=== PATIENT | female | born 1950 | race Caucasian/White ===

== ENCOUNTER 2017-06-17 12:30 | Inpatient (IN) | payer MEDICARE ==
[2017-06-17] MEDS ORDERED: Dexamethasone 10 MG/ML VIAL ONE (12:57)
[2017-06-17 13:05] LABS: Bilirubin Negative (Negative); Blood, Urine Negative (Negative); Clarity CLEAR (Clear); Glucose, Urine (Dipstick) Negative (Negative); Leukocyte Small (Negative); Nitrite Negative (Negative); Protein, Urine (Dipstick) Negative (Neg-Trace); Specific Gravity, Urine 1.019 (1.002-1.036); Urobilinogen 0.2 mg/dL (0.2-1.0)
[2017-06-17 13:07] LABS: Bacteria/HPF None Seen HPF (None Seen); Hyaline Casts/LPF 0-3 HYALINE CAST LPF (0-3 Hyaline); Pathc Cast-AUWi Flag 0.27 (0-2.49); RBC/HPF 0-3 HPF (0-3); Squamous Epithelial 0-3 HPF (0-3); WBC/HPF 0-3 HPF (0-3)
--- NOTE | 2017-06-17 13:12 | RAD ---
PORTABLE CHEST 1 VIEW: Date: 06/17/17 Time: 1257 hours HISTORY: Altered mental status. FINDINGS: The heart size is normal. The aorta is tortuous. The lungs are expanded without focal areas of consol idation, pneumothorax, or pleural effusions. IMPRESSION: No radiographic evidence of acute cardiopulmonary process. POS: H
[2017-06-17 13:19] LABS: #Eosinphils 0.2 thou/uL (0.0-0.7); #Lymphocytes 1.7 thou/uL (1.20-3.40); #Monocytes 0.4 thou/uL (0.11-0.59); #Neutrophils 3.7 thou/uL (1.40-6.50); %Basophils 0.7 % (0.0-1.0); %Eosinophils 3.9 % (0.0-10.0); %Lymphocytes 28.2 % (21.0-51.0); %Monocytes 6.9 % (0.0-10.0); %Neutrophils 60.3 % (42.0-75.0); Mean Corpuscular Hemoglobin 30.8 pg (27.0-31.0); Mean Corpuscular Volume 93.4 fl (81.0-99.0); Mean Platelet Volume 7.3 fL (7.4-10.4); Platelet Count 279 thou/uL (130-400); RBC Distribution Width 11.9 % (11.5-14.5); Red Blood Cell (RBC) Count 4.55 mill/uL (4.20-5.40); White Blood Cell (WBC) Count 6.1 thou/uL (4.8-10.8)
[2017-06-17 13:47] LABS: ALT (SGPT) 12 U/L (8-55); AST (SGOT) 16 U/L (5-34); Albumin 4.3 g/dL (3.4-4.8); Alkaline Phosphatase 104 U/L (40-150); Anion Gap 12 mmol/L (10-20); BUN (Urea Nitrogen) 16 mg/dL (9.8-20.1); Bilirubin, Total 0.6 mg/dL (0.2-1.2); CK (CPK) 56 U/L (29-168); Calc. Creatinine Clearance 0 mL/min (70-130); Calcium 9.6 mg/dL (7.8-10.44); Carbon Dioxide 28 mmol/L (23-31); Chloride 101 mmol/L (98-107); Estimated GFR-MDRD 73; Globulin 2.9 g/dL (2.4-3.5); Glucose 115 mg/dL (80-115); Potassium 3.7 mmol/L (3.5-5.1); Protein, Total 7.2 g/dL (6.0-8.3); Sodium 137 mmol/L (136-145)
[2017-06-17 13:50] LABS: CKMB 1.4 ng/mL (0-6.6); Troponin I Less than 0.010 ng/mL (< 0.028)
[2017-06-17 15:45] LABS: PTT 36.1 SEC (22.9-36.1); Prothrombin Time 12.9 SEC (12.0-14.7)
[2017-06-17 16:41] VITALS: BMI 27.6
--- NOTE | 2017-06-17 17:02 | HP ---
CHIEF COMPLAINT: Abnormal CAT scan finding. HISTORY OF PRESENT ILLNESS: The patient is a very pleasant 67-year-old female with past medical hist ory of breast cancer, status post lumpectomy and radiation, history of hypothyroidism, history of ref lux who presented to the hospital for abnormal CAT scan. The patient states that for about a couple of weeks, she has been having a headache around the occipital area, which has increased in intensity. Her also stated that her headache has been going on for about a month now. The patient als o stated that she has been having for the past couple of weeks some dizziness and also some ringing i n the ears with increasing and decreasing frequency, which lasts for about few minutes and resolves. Last Wednesday, patient actually was at the bank and got very confused, could not find her office nor h tessie lopes's office. At that time, she was taken over to an urgent care clinic where a CAT scan was ord ered for this patient. The patient denies currently any nausea, vomiting, any blurry vision or any h eadaches. The patient had the CAT scan done today at 11:00 a.m. Based on the CAT scan finding, she was asked to come into the ER for further evaluation. PAST MEDICAL HISTORY: Reflux, hypothyroidism and breast cancer with status post lumpectomy. PAST SURGICAL HISTORY: Cholecystectomy, right breast lumpectomy. She had 5 nodes that were negative and initially she did have positive margins; however, she went back and those margins were removed a nd her repeat margins were negative. She is a T1N0M0. MEDICATIONS: The patient says that she takes omeprazole, anastrozole and Synthroid. ALLERGIES: The patient denies any drug allergies. SOCIAL HISTORY: The patient lives with her spouse. Never smoked. The patient is a social drinker. No illicit drug use. REVIEW OF SYSTEMS: The patient has been complaining of headache, dizziness, ringing in the ears, angie e bouts of confusion. Otherwise, the rest of the review of system that was done was negative. The p atient denies any night sweats, fevers or chills, any weight loss, any chest pain, shortness of breat h, any joint pain or back pain, any rashes, any bruising, any chest pain or palpitation. PHYSICAL EXAMINATION: GENERAL: The patient is awake, alert and oriented x3. CARDIOVASCULAR: S1 and S2 present. No murmurs, rubs or gallops. LUNGS: Clear to auscultation. No rhonchi or wheezing noted. ABDOMEN: Soft, bowel sounds are present x2 and nontender. NEUROLOGIC: The patient has 5/5 upper extremity strength and lower extremity strength. Sensation is intact in upper and lower extremities. Cranial nerves II-XI are intact. Cerebellum exam finger to toe is intact. Iinb-bj-ayie is intact. LABORATORY AND IMAGING DATA: As the following; sodium of 137, potassium of 3.7, chloride of 101, car bon dioxide of 28 and creatinine 0.79. LFTs were normal. Alkaline phosphatase 104. Lactic dehydrog enase was 226. White blood count was 6.1, hemoglobin was 14.0, hematocrit was 42.5 and platelets wer e 279. INR was 1. Initial CT scan that was done indicated multiple intracranial masses. ASSESSMENT AND PLAN: The patient is a very pleasant 67-year-old female status post radiation for emilee ast cancer on anastrozole adjuvant therapy, who initially had a CAT scan as an outpatient done given her symptoms of headache, dizziness, and bouts of confusion who presents today with abnormal CAT scan finding. 1. Headaches, dizziness and bouts of confusion could be secondary to possible metastatic breast canc er versus new mass. Initial CT scan did indicate intracranial mass. We will check an MRI with and w ithout contrast. For better evaluation, we will start the patient on some Decadron. We will also ge t Neurosurgery consult. We will also get Oncology consult. 2. Hypothyroidism. We will continue her home medication. 3. Deep venous thrombosis prophylaxis. We will put patient on sequential compression devices. 4. Reflux. We will continue the patient's Prevacid.
[2017-06-17] MEDS ORDERED: ISOVUE-370 76%-LOCM 1 ML ONE (17:11)
[2017-06-17] MEDS: Dexamethasone 4 MG in Sodium Chloride 0.9% 50 ML IVPB SCH (18:44)
--- NOTE | 2017-06-17 20:48 | CON ---
DATE OF CONSULTATION: 06/17/2017 HISTORY OF PRESENT ILLNESS: Ms. Alfaro is a 67-year-old female had a past medical history of breast cancer, status post lumpectomy and radiation history with Dr. Lopez and Dr. Bills. History of hypothyroidism, history of reflux. The patient presented to the hospital after having several weeks of dizziness, headache, and loss of short term memory, and change in mental status. This was especially apparent the last Wednesday, 06/11 witnessed by coworkers at her work. She has had some tinnitus bilaterally with increasing frequency. These episodes last a few minutes and then resolved. 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 She presented to urgent care clinic, where a CAT scan was ordered of the brain. A CAT scan showed multiple metastatic lesions. Patient in 03/2016, has a breast biopsy surgical specimen that was estrogen receptor positive, progesterone receptor positive. Diagnosis was invasive lobular carcinoma. After presenting to the emergency room this evening with her family, the patient received a bolus of Decadron, which resolved her headache and some of her dizzy symptoms. Neurosurgery was consulted on the lesions found on the CT scan and to evaluate the MRI brain lab protocol. PAST MEDICAL HISTORY: Reflux, hypothyroidism, breast cancer status post lumpectomy. PAST SURGICAL HISTORY: Cholecystectomy, right breast lumpectomy, resection of 5 nodes that were negative with partially positive margins. The margins were removed and repeat margins were negative. She is T1N0M0. MEDICATIONS: The patient is taking omeprazole, anastrozole, and Synthroid. ALLERGIES: Patient denies any drug allergies. SOCIAL HISTORY: She lives at her house with her spouse. She denies any smoking history. She is a social drinker and denies any drug allergies. REVIEW OF SYSTEMS: Ten-point review of systems completed. The patient has a positive review of symptoms of dizziness. She has mild weakness in bilateral upper extremities that has been worsening over time. She has no focal, motor, or sensory deficits in the upper or lower extremities bilaterally. She complains of headache, dizziness, tinnitus bilaterally, and recent bouts of confusion. She denies any night sweats, fever, chills, weight loss, chest pain , or shortness of breath. All other review of systems negative, unless stated in the above HPI. PHYSICAL EXAMINATION: VITAL SIGNS: Have been reviewed. Temperature is 98.6, pulse 76, respirations 18, O2 sat 95% on room air, blood pressure is 109/62. GENERAL: The patient is alert and oriented x3. She is GCS of 15. She is accompanied by her son, hiiofsev-bb-ooy, and . CARDIOVASCULAR: Regular rate and rhythm. Normal S1, S2. Heart sounds are present. LUNGS: The patient has bilateral symmetric chest rise. Appears to have no shortness of breath, no wheezing noted. ABDOMEN: Patient has bowel sounds that are present and nontender. EXTREMITIES: Upper and lower extremities: No focal, motor, or sensory deficits bilaterally. Pulses +2, equal and symmetric in the upper and lower extremities bilaterally. NEUROLOGIC: Patient's cranial nerves II through XII are grossly intact. Speech is fluent. She answers my questions appropriately. There are intermittent questions that she refers to her to answer. Her heel to lloyd exam is intact. She has got no lateralizing deficits on exam. Cerebellar exam is normal with rhythmic finger to thumb touches. I did not assess gait as patient is explained to be off balance. ASSESSMENT: Ms. Alfaro is a 67-year-old female, who presents with multiple metastatic lesions to the brain, the largest of which is in the left frontal lobe, is likely causing most of her symptoms of confusion, dizziness, and changes in mental status. She is a breast cancer positive been on anastrozole adjuvant therapy. PLAN: Dr. Lopez has been the treating radiation oncologist for Ms. Alfaro. She will likely see Mrs. alfaro by morning to decide if they need some tissue for diagnosis before radiation. If they do, we will possibly plan on doing a frontal craniotomy tomorrow. Starting at midnight night, we will keep her n.p.o. We will start her on Decadron and add Protonix for GI prophylaxis. We will use sequential compression devices for prevention of DVTs. After there has been discussion tomorrow between Dr. Lopez and the Neurosurgery group, we will make a plan with the patient going forward. We will refer to the medicine team for medical management of the patient for the time being. If there are any further questions, please feel free to contact Neurosurgery. KOBI
--- NOTE | 2017-06-17 23:02 | CT ---
CT CHEST WITH IV CONTRAST CT ABDOMEN AND PELVIS WITH IV CONTRAST 06/17/17 HISTORY: Metastatic brain disease. COMPARISON: None available. CT THORAX: The heart is enlarged. Thoracic aorta is normal in caliber. There is no evidence of lymphadenopathy. No pulmonary nodule or mass is seen in the lungs bilaterally and there is no pleural effusion. The viral ngs are clear. No lytic or sclerotic osseous lesions are seen. Degenerative changes are seen in the thoracic spine. CT ABDOMEN AND PELVIS: There are two hypodense lesions seen in the lateral segment of the left hepatic lobe, largest measure s 2.9 cm which does demonstrate fluid attenuation. Smaller subcentimeter hypodense lesion is also see n in the lateral segment left hepatic lobe and even smaller subcentimeter hypodense lesion seen in th e lateral aspect dome of the liver. No additional hepatic lesions are appreciated. The findings are p robably related to small hepatic cysts although cystic metastatic lesions could not be entirely exclu ded although this is thought less likely. The spleen, pancreas, bilateral adrenal glands, kidneys, urinary bladder, uterus and adnexal regions, and opacified bowel demonstrate a normal CT appearance. Vascular calcifications are seen in the thor acic aorta. A few colonic diverticula are seen without CT evidence of diverticulitis. There is no evidence of lymphadenopathy. No mass or intraperitoneal free fluid is seen in the abdomen or pelvis. Small hiatal hernia is identified. Osseous structures are demonstrate no lytic or sclerotic lesions and there are degenerative changes i n the spine. IMPRESSION: 1. No definite CT findings to suggest metastatic disease. 2. Hypodense cystic lesions within the liver, which are thought to most likely be related to hep atic cysts, although given history of metastatic disease and multiplicity of these lesions, metastati c disease cannot be entirely excluded but is thought less likely. 3. Small hiatal hernia. 4. Colonic diverticulosis. 5. Cholecystectomy changes. 6. Lungs are clear without evidence of a pulmonary nodule or mass. POS: ERIC
[2017-06-17] MEDS ORDERED: Pantoprazole 40 MG VIAL IVP SCH (23:45)
[2017-06-18] MEDS: Dexamethasone 4 MG in Sodium Chloride 0.9% 50 ML IVPB SCH ×2 (00:16→05:42)
[2017-06-18] MEDS: Pantoprazole 40 MG VIAL IVP SCH ×3 (03:37→20:43)
--- NOTE | 2017-06-18 07:16 | PRG ---
DATE OF SERVICE: 06/18/2017 I talked to Ms. Alfaro in her room this morning about communicating with Dr. Lopez to see what h er plan is going forward. Ms. Alfaro is status post lumpectomy for ductal carcinoma. She also allison s a newly found multiple metastatic lesions in the brain. On exam this morning, her headache is dull and she has no new neurologic deficits. The Decadron is likely helping with the edema around the ri ght frontal tumor. Her vital signs have been stable. Overnight, the patient reports not sleeping we ll. She has been n.p.o. since midnight and we will continue that until we have final plans in commun ication with the radiation oncologist. If there are any further questions, please feel free to contact Neurosurgery.
--- NOTE | 2017-06-18 07:24 | PRG ---
DATE OF SERVICE: 06/18/2017 I personally interviewed and examined the patient and agree with documentation of Eddie Gillespie PA-C, dated 06/17/2017. Briefly, Yuni Alfaro is a very pleasant 67-year-old woman who underwent diagnosis and treatment of a breast cancer just last year. Breast cancer was felt to be genetically and histologically at low risk with a 95% cure rate. She returned to our hospital yesterday with new onset of mental status changes. Imaging of the brain reveals multiple lesions with surrounding vasogenic edema. Neurosurgery was consulted. Since admission, she has been on Decadron to help with her edema. She is feeling a bit better. This morning I am speaking with Ms. Alfaro, her and son. Overnight symptoms have improved. Cranial nerves look intact to me, there may be some amount of neglect of her left visual field versus a field cut, but the remainder of the cranial nerves are working. There is no lateralizing motor or sensory deficits. I reviewed imaging of the brain. There are 3 large contrast enhancing lesions that are visible on the scans. Two smaller enhancing lesions are seen as well. Of the larger three, the first is a lesion abutting the dura over the right frontal lobe and touching the interhemispheric falx. There is surrounding vasogenic edema in the right frontal lobe. There is another lesion in the right half of the posterior aspect of the corpus callosum. This was the right half of the splenium and there is occipital lobe edema behind it. A third lesion is in the left hemisphere abutting the ependymal surface of the atrium of the lateral ventricle on the left. There is some occipital lobe edema around that lesion. These lesion seems to be causing more edema than mass effect. The lesion of splenium of corpus callosum also abuts the interhemispheric falx. I discussed the case with Dr. Giselle Lopez and with both Dr. Lopez and Dr. Bills of Oncology and Radiation Oncology respectively. They recommended and ordered a CT of the chest, abdomen, and pelvis and other than some hypodensities in the liver, there is nothing else to give us an idea of a primary tumor. After CT imaging of the chest, abdomen and pelvis this most likely to represent a metastatic process from her original breast cancer, but almost it is likely it could be an unknown primary. Dr. Bills is willing to treat with whole-brain radiation therapy, then we can proceed with that. If, however, tissue is requested, then the right frontal lobe lesion is accessible surgically. The 5% less risk of permanent neurological deficit from that operation, but is not without risk. The patient understands this and is waiting to hear from her Oncology team about their recommendations. If a decision is made in the next hour the surgery could be added to our schedule today and if not, then Wednesday. MTDD
[2017-06-18] MEDS ORDERED: Sodium Chloride 0.9% 20 ML ONE (09:06)
[2017-06-18] MEDS ORDERED: Bupivacaine 0.5% 10 ML VIAL ONE (09:06)
[2017-06-18] MEDS ORDERED: Bacitracin Zinc Ointment 30 gm TUBE ONE (09:07)
[2017-06-18] MEDS ORDERED: Thrombin 5000 UNITS/5 ML VIAL ONE (09:07)
[2017-06-18] MEDS ORDERED: Midazolam HCl 2 mg/2 ml Vial ONE (09:39)
--- NOTE | 2017-06-18 09:47 | PRG ---
DATE OF SERVICE: 06/18/[address] Bills spoke with the patient, the family decided to proceed with a craniotomy for tissue t o make her diagnosis, treat the mass effect around one of the lesions and plan treatment of the other lesions. INFORMED CONSENT: I discussed indications, risks, benefits, and alternatives to BrainLAB stereotacti c assisted craniotomy for tumor resection. The risks we discussed included, but were not limited to bleeding, infection, brain damage, seizures, stroke, paralysis, dependence for care, cardiopulmonary complications of anesthesia and . She understands the risks and wants to proceed. I will take Mrs. Alfaro to the operating room to remove the right frontal lesion via craniotomy.
[2017-06-18] MEDS ORDERED: Lidocaine 0.5%/Epinephrine 1:200,000 50 ml Vial ONE (09:49)
[2017-06-18] MEDS ORDERED: Fentanyl 100 MCG/2 ML VIAL ONE ×2 (09:51→13:19)
[2017-06-18] MEDS ORDERED: CEFAZOLIN/Water 2 GM/20 ML SYRINGE ONE (09:56)
--- NOTE | 2017-06-18 10:41 | CON ---
DATE OF CONSULTATION: 06/18/2017 HISTORY OF PRESENT ILLNESS: Ms. Alfaro is a 67-year-old female who was admitted to the hospital f or an MRI suggestive of brain metastasis. I am seeing her today to discuss her treatment options. HISTORY OF PRESENT ILLNESS: Ms. Alfaro is well known to me. She was diagnosed with an early stag e, pathological stage IA, [id number] invasive lobular carcinoma of the right breast about a little more than a year ago. The tumor was estrogen and progesterone receptor positive and HER2 receptor negativ e. The tumor measured 5 mm in size. She was treated with breast conservation therapy including radi ation, which was completed around July 2016. She has been on Arimidex under the direction of Dr. Parker gregory because she was low risk on the Oncotype DX test. She was last seen by me in follow up about 3 months ago at which time she was doing well. About 2 weeks ago, she began having headaches. She in itially attributed this to stress. Last Wednesday, she had some disorientation and was seen by a clinic in [place] and was given some medication. On Wednesday, she returned to work but was having difficu lty with functioning at work. She was also unstable on her feet besides the disorientation. She und erwent a CT scan of the head yesterday at the [facility] which had findings suggestive of mult iple intracranial masses. Therefore, it was recommended that she come to the emergency room for eval uation. She was subsequently admitted to the hospital and underwent an MRI of the brain. This showe d at least 3 contrast enhancing lesions concerning for brain metastasis versus lymphoma. The largest measured 3.3 cm and was involving the right splenium of the corpus callosum. She had a second large lesion in the right frontal lobe measuring 2.2 cm. A third lesion was also identified in the left t emporal occipital area. There was also a fourth area of tiny enhancement seen along the left medial posterior parietal region. There was surrounding vasogenic edema with some midline shift. Concern w as for metastatic disease versus a COOKIE BREAKER lymphoma. She was seen by medical oncology and Dr. Kaur. A CT of the chest, abdomen, and pelvis were performed which showed no evidence of additional metast atic disease. She had 2 hypodensities in the liver consistent with cyst. I am seeing her today to d iscuss her options. She has been placed on Decadron and her symptoms are much better. Her thinking is much more clear and her balance is better. She denies any headaches at this time. She has no foc al weakness or numbness. She has no other areas of pain or shortness of breath. She voices no other complaints. PAST MEDICAL HISTORY: 1. Stage I invasive lobular carcinoma of the breast as mentioned above. The tumor was estrogen and progesterone receptor positive and HER2 receptor negative. 2. GE reflux disease. 3. Hypothyroidism. 4. Irritable bowel syndrome. 5. Status post cholecystectomy. MEDICATIONS: Dexamethasone, Keppra, and Protonix. At home, she was also taking thyroid medication a nd Xanax. ALLERGIES: No known medical allergies. SOCIAL HISTORY: She has no cigarette or alcohol use. [place] in [place], [place]. She works at a bank. Her and son are with her in the room today. FAMILY HISTORY: No family history of breast or ovarian cancer or other family history of malignancy. REVIEW OF SYSTEMS: Twelve system review of systems was otherwise negative. PHYSICAL EXAMINATION: VITAL SIGNS: Height 5 feet 5 inches, weight 166 pounds, blood pressure 125/57, pulse is 91, respirat ions are 20, temperature 97.9, O2 saturation is 97%. GENERAL: She is alert and oriented and in no apparent distress. She is well developed and well nour ished. Karnofsky performance status is 90%. EYES: Pupils equal, round, and reactive to light. Extraocular movements are intact. ENT: Oral cavity and oropharynx normal without lesion or erythema. Palate elevates symmetrically. Gingiva is intact. NECK: Supple without cervical or supraclavicular adenopathy. No thyromegaly. Larynx is midline. LUNGS: Breathing nonlabored. Clear to auscultation and percussion. CARDIOVASCULAR: Heart regular rate and rhythm without murmur. No lower extremity edema. BACK: No tenderness on fist percussion of her spine. LYMPHATIC: No axillary or inguinal adenopathy. ABDOMEN: Soft, nontender, nondistended without mass or hepatosplenomegaly. Liver percussed to a nor mal size. SKIN: Without rash or purpura. NEUROLOGIC: Cranial nerves II-XII grossly intact. Motor strength is 5/5 in both upper and lower ext remities in all muscle groups tested. Reflexes are normal and symmetrical. Gait was not tested. LABORATORY DATA: CBC revealed a white blood cell count of 6100 with hemoglobin of 14.0, hematocrit o f 42.5. Platelet count was 279,000. Chemistry group revealed normal electrolytes, normal liver func tion tests. CK was normal at 56. RADIOLOGIC: MRI of the brain was personally reviewed. She has at least 3 contrast enhancing lesions in the brain as discussed above consistent with metastatic disease. There are less likely possibili ties including lymphoma. She has surrounding vasogenic edema. CT of the chest, abdomen, and pelvis was also personally reviewed and shows no additional evidence of metastatic disease. She has 2 hypod ensities in the liver consistent with a cyst. ASSESSMENT: Ms. Alfaro is a 67-year-old female with a previously known pathological stage IA, T1b N0M0 invasive lobular carcinoma of the right breast, which was estrogen and progesterone receptor po sitive and HER2 receptor negative. She is at low risk on the Oncotype DX test and was treated with b reast conservative therapy and anastrozole. She now has contrast enhancing lesion consistent with me tastatic disease. This could be metastatic breast cancer, although other possibilities include metas tatic disease from another source versus lymphoma. PLAN: I had a good discussion today with Ms. Alfaro and her and son who are with her rega rding her present situation. Her breast cancer was very early stage and would have been expected to have a low risk of recurrence (less than 10%). While this could be metastatic breast cancer to the b rain, this would be very surprising. This is because her cancer was low risk and also because of the timing being that she was diagnosed about a year ago. I think other possibilities would include met astasis from another source versus even a COOKIE BREAKER lymphoma, although the latter is felt less likely. I t hink because the picture is not straightforward that we need to have tissue confirmation before we ca n proceed with treatment. She has no other areas that we could biopsy. I think the only way to get tissue confirmation would be for Neurosurgery to remove one of her metastatic lesions. She has been seen by Dr. Kaur, who feels that one of these lesions would be reachable and could be removed fo r tissue diagnosis. The only other option would be to proceed with whole-brain radiation therapy. T maxi logistics of radiation as well as the benefits and risks were briefly discussed. She would not be a candidate for radiosurgery because of the size of the lesion and the number of lesions that she allison s (4). However, given the uncertainty and the diagnosis, I do not think the whole-brain radiation th erapy is the best way to proceed initially. I think it is best that we get tissue diagnosis. After good discussion with the patient and her family, she is agreeable to proceed with that approach. I d id discuss the case with Dr. Lopez last evening and she also agrees with us getting tissue diagnosi s. I have discussed the case with Dr. Kaur and we will relay that information to Dr. Kaur this morning that she is agreeable to proceed with neurosurgical intervention for tissue confirmation . We can make further recommendations once the tissue diagnosis is confirmed and obtained. Thank you for this interesting consultation.
--- NOTE | 2017-06-18 11:34 | CON ---
DATE OF CONSULTATION: 06/18/2017 REASON FOR CONSULTATION: Brain lesions. HISTORY OF PRESENT ILLNESS: Ms. Alfaro is a 67-year-old female who was diagnosed in 05/2016 with T1 N0 M0 invasive lobular carcinoma of the right breast. She had a lumpectomy with reexcision of her sentinel lymph nodes, all of which were negative. She was at low risk Oncotype. She underwent radi ation therapy and was on anastrozole. When she presented to her primary care for confusion and TIA s ymptoms, a CAT scan performed, which showed multiple intracranial metastasis. She then had a brain M RI which showed mass-like areas. The largest was in the right splenium of the corpus callosum measur ing 3.3 x 2.8 x 2.4. There was another in the right frontal lobe measuring 2.0 x 2.2 x 2.2; third wa s in the temporo-occipital region on the left. Dr. Kaur was consulted. We were asked to see th e patient. CT of her chest, abdomen, and pelvis showed no further evidence of metastatic disease, no new primary. The patient complains of headache and confusion. No neuromuscular deficits. PAST MEDICAL HISTORY: 1. Lobular breast cancer status post lumpectomy and radiation. 2. Irritable bowel syndrome. 3. Hypothyroidism. 4. Gastroesophageal reflux disease. PAST SURGICAL HISTORY: 1. Lumpectomy of the right breast. 2. Cholecystectomy. ALLERGIES: No known drug allergies. HOME MEDICATIONS: 1. [place] Thyroid 60 mg daily. 2. [place] 7.5 mg 2 capsules daily. 3. Hydrochlorothiazide daily. 4. Prevacid daily. FAMILY HISTORY: Noncontributory. SOCIAL HISTORY: , has one child. Lives with her spouse. No alcohol, tobacco or illicit drug use. REVIEW OF SYSTEMS: Twelve point review of systems negative except for noted in HPI. PHYSICAL EXAMINATION: VITAL SIGNS: Temperature is 98.2, pulse is 75, respiratory rate 16, BP is 119/60, she is 96% on room air. GENERAL: Well-developed, well-nourished female in no acute distress. HEENT: Normocephalic, atraumatic. Pupils are equal and reactive to light. NECK: Supple. CARDIOVASCULAR: Regular rate and rhythm. LUNGS: Clear. ABDOMEN: Soft, nontender, bowel sounds are positive. EXTREMITIES: No clubbing, cyanosis or edema. SKIN: No rash. HEMATOLOGIC: No petechia or purpura. NEUROLOGIC: Nonfocal. PSYCHIATRIC: Patient is alert and oriented and appropriate. PERTINENT LABORATORY DATA AND IMAGING DATA: Current WBCs are 6.1, hemoglobin 14.0, hematocrit 42.5, platelet count is 279,000. PT is 14.9, INR is 1.0, PTT 36.1. Sodium is 137, potassium 3.7, chloride 101, CO2 28, BUN is 16, creatinine 0.79, calcium is 9.6, total bilirubin is 0.6, AST is 16, ALT is 1 2, alkaline phosphatase is 104. CK-MB is 1.4, troponin is less than 0.010. Serum total protein is 7 .2, albumin 4.3, globulin 2.9. CEA is 1.42. CA 27.29 is pending. Urine is negative. Radiology per HPI. ASSESSMENT: 1. Metastatic brain lesions. 2. History of lobular carcinoma of the right breast. DISCUSSION: It would be unusual for lobular carcinoma to metastasize to the brain. That being said, she has no other evidence of primary or metastatic disease. We do need tissue for pathological eval uation. Dr. Kaur will be taking patient today and further recommendations will be based on the pathological results. Thank for the consult.
[2017-06-18] MEDS ORDERED: PHENYLEPHRINE-NS 100 MCG/ML 10 ML SYRINGE ONE ×4 (11:50→16:41)
[2017-06-18] MEDS ORDERED: Rocuronium Bromide 50 MG/5 ML VIAL ONE (11:54)
[2017-06-18] MEDS ORDERED: ePHEDrine/0.9% NaCl/PF SYRINGE 50 mg/10 ml ONE ×2 (12:28→16:41)
[2017-06-18] MEDS ORDERED: Ondansetron ORAL SOLN. 4 MG/5 ML UDCUP PO PRN (12:46)
--- NOTE | 2017-06-18 12:46 | OP ---
DATE OF PROCEDURE: 06/18/2017 SURGEON: Wayne Kaur M.D. MENTAL HEALTH ASSOCIATE: Eddie Gillespie PA-C. PREOPERATIVE INDICATION: Make diagnosis, prevent neurological deterioration. PREOPERATIVE DIAGNOSES: Multiple brain lesions with vasogenic edema, accessible right frontal lobe l esion. POSTOPERATIVE DIAGNOSIS: Multiple brain lesions with vasogenic edema, accessible right frontal lobe lesion. OPERATIVE PROCEDURE: BrainLAB stereotactic assisted craniotomy, resection of right frontal lobe lesi on. PREOPERATIVE MEDICATION: Ancef 2 grams IV. DRAIN NUMBER: Zero. DRAIN TYPE: None. OPERATIVE DICTATION: The patient was brought to the operating room. General endotracheal anesthesia was induced. The patient was positioned on the operating table supine and her head immobilized in a [place] jeyson head of merchandise buying and attached to the bed with the Mon attachment. Using the BrainLA B protocol MRI scan obtained before surgery, the BrainLAB navigation system, and surface anatomic maddie dmarks were generated stereotactic navigation three-dimensional space around the patient's head. We verified our registration from our navigating wand and surface landmarks and concordance was excellen t. We planned a bifrontal incision to access the right frontal lesion. Hair was removed with electr ic clippers. Under the planned incision, we infused local anesthetic. The scalp was sterilely prepp ed and draped and we opened the coronal incision with a 10 blade knife. We controlled bleeding with bipolar cautery. We used monopolar cautery to dissect down to the periosteal layer. We folded our l dawson of periosteal forward with the scalp flap and held flap in place under fishhooks. We then used the navigation wand to place bur holes along the midline and one lateral to midline over the right fr ontal lobe. We connected our bur holes with a side cutting bit and a foot plate and then removed the craniotomy flap from the field. The dura was intact. We opened the dura in a curvilinear fashion w ith its long axis along the falx. A large draining vein from the right frontal lobe entered an arach noid granulation directly in the middle of the abnormal tissue. We preserved this vein during the en tirety of the dissection. We folded the dura medially with skeletonizing the vein and left the vein in place. The operating microscope was brought into the field. Under microscopic magnification using microsurgical techniques, we generated a plane around the abnor mal tissue. We circumferentially dissected with navigation wand anteriorly, posteriorly, medially an d laterally. We removed all the abnormal tissue from the right frontal lobe and sent it to pathology . The resection cavity was surrounded by what appeared to be normal appearing white matter. We obta ined excellent hemostasis with bipolar cautery. We irrigated copiously with bacitracin irrigation. We folded the dura back in place, we harvested a piece of pericranium and left that over the dura as well as a piece of Surgicel. The skull flap was brought back into the field using 3 bur hole covers we reattached the skull flap to the patient's [place]ell skull. We irrigated once again with bacitracin irrigation. We then closed our bifrontal incision in anatomic layers and we applied a sterile dressi ng. This was a clean case and no contamination.
[2017-06-18] MEDS ORDERED: Promethazine HCl 25 MG/ML VIAL ONE (13:07)
[2017-06-18] MEDS ORDERED: Promethazine HCl 25 MG/ML VIAL IM PRN (13:14)
[2017-06-18] MEDS ORDERED: Promethazine HCl 25 MG/ML VIAL SLOW IVP PRN (13:14)
[2017-06-18] MEDS ORDERED: Ondansetron HCl/PF 4 MG/2 ML Vial IVP PRN (13:14)
[2017-06-18] MEDS ORDERED: Morphine Sulfate 2 MG/ML SYRINGE SLOW IVP PRN (13:14)
[2017-06-18] MEDS: Dexamethasone 4 mg/ml Vial SLOW IVP SCH ×2 (13:53→17:29)
[2017-06-18] MEDS: Morphine 4 MG/ML Carpuject SLOW IVP PRN ×2 (13:59→17:29)
[2017-06-18] MEDS ORDERED: Propofol 200 MG/20 ML VIAL ONE (16:41)
[2017-06-18] MEDS ORDERED: Glycopyrrolate 0.2 MG/ML 5 ML SYRINGE ONE (16:41)
[2017-06-18] MEDS ORDERED: Lidocaine 1% PF 5 ML VIAL ONE (16:41)
[2017-06-18] MEDS ORDERED: Ondansetron HCl/PF 4 MG/2 ML Vial ONE (16:41)
[2017-06-18] MEDS ORDERED: Morphine 4 MG/ML Carpuject SLOW IVP PRN (16:56)
--- NOTE | 2017-06-18 17:02 | PDOC.PN ---
- Subjective Encounter Start Date: 06/18/17 Encounter Start Time: 17:00 Subjective: pt up in bed s/p surgery is having pain - Objective Vital Signs & Weight: Vital Signs (12 hours) Temp Pulse Resp BP Pulse Ox 06/18/17 14:09 98.8 F 74 14 99 06/18/17 14:00 98.8 F 06/18/17 08:00 98.2 F 75 16 119/60 96 Weight Weight 166 lb Most Recent Monitor Data Heart Rate from ECG 75 NIBP 116/53 NIBP BP-Mean 82 Respiration from ECG 18 SpO2 100 I&O: 06/17/17 06/18/17 06/19/17 06:59 06:59 06:59 Intake Total 1050 300 Output Total 95 Balance 1050 205 Result Diagrams: 06/17/17 13:09 06/17/17 13:09 Phys Exam - Physical Examination Neck: no nodes Respiratory: no wheezing, no rales Cardiovascular: RRR, no significant murmur Gastrointestinal: soft, non-tender Musculoskeletal: no edema Neurological: non-focal (post craniotomy dressing intact), moves all 4 limbs Dx/Plan (1) Brain metastases Code(s): C79.31 - SECONDARY MALIGNANT NEOPLASM OF BRAIN Status: Acute Plan: s/p craniotomy, will continue to monitor, pt on steroids/ppi and keppra for seizure ppx (2) Adult hypothyroidism Code(s): E03.9 - HYPOTHYROIDISM, UNSPECIFIED Status: Acute (3) Breast cancer Status: Acute Plan: s/p radiation - Plan will continue medication once able to tolerate oral * .
[2017-06-18] MEDS ORDERED: Ondansetron HCl/PF 4 MG/2 ML Vial SLOW IVP PRN (19:29)
[2017-06-18] MEDS: Promethazine HCl 25 MG/ML VIAL SLOW IVP PRN (20:02)
[2017-06-18] MEDS ORDERED: Vancomycin HCl 1.25 GM in Sodium Chloride 0.9% 250 ML 250 ML IVPB SCH (21:00)
[2017-06-19] MEDS: Dexamethasone 4 mg/ml Vial SLOW IVP SCH ×5 (00:51→23:22)
[2017-06-19] MEDS: Promethazine HCl 25 MG/ML VIAL SLOW IVP PRN ×2 (05:50→08:33)
[2017-06-19] MEDS: Pantoprazole 40 MG VIAL IVP SCH (08:34)
[2017-06-19] MEDS ORDERED: Cyclobenzaprine 10 MG TAB PO PRN (11:16)
[2017-06-19] MEDS ORDERED: ACETAMINOPHEN PO PRN (11:16)
[2017-06-19] MEDS ORDERED: BUTALBITAL PO PRN (11:16)
--- NOTE | 2017-06-19 11:33 | PRG ---
DATE OF SERVICE: 06/19/2017 SUBJECTIVE: Ms. Alfaro is a 67-year-old woman who is now on her first postoperative day following right frontal craniotomy and mass resection. She unfortunately has had a significant degree of diff iculty in controlling nausea and vomiting overnight and this morning; however, at bedside when I see her, she has had a recent dose of Phenergan, which seems to have helped her a great deal. She is sti ll a little unsettled and mostly has a significant headache. I think a lot of this may be due to inc reased ICP from retching as well as the craniotomy site. We will work better control her headache sy mptoms. Otherwise, I feel like she is tolerating her surgery well. Her incision looks to be well ap proximated and dry. There is no obvious drainage. Prieto are intact. She did have a little bit of bloody drainage from a small staple hole from the drapes over her right ear. This has since resolve d. Plan will be to transition her to the floor. We will get physical therapy and occupational thera py to assess her functional status. She asked about going home. I do not think we are quite ready y et, but could see her going home as early as later this afternoon or tomorrow, which is more likely.
[2017-06-19] MEDS ORDERED: ALPRAZolam 0.25 MG TAB PO PRN (12:34)
--- NOTE | 2017-06-19 14:39 | PDOC.PN ---
- Subjective Encounter Start Date: 06/19/17 Encounter Start Time: 10:45 Subjective: pt up in bed appear depressed, has some pain around surgical site - Objective Vital Signs & Weight: Vital Signs (12 hours) Temp Pulse Resp BP Pulse Ox 06/19/17 13:39 99.0 F 72 16 06/19/17 12:30 99.0 F 72 16 122/77 99 06/19/17 08:00 98.8 F 76 18 06/19/17 04:00 98.8 F Weight Weight 166 lb Most Recent Monitor Data Heart Rate from ECG 75 NIBP 111/51 NIBP BP-Mean 75 Respiration from ECG 14 SpO2 96 I&O: 06/18/17 06/19/17 06/20/17 06:59 06:59 06:59 Intake Total 1050 1322 650 Output Total 1405 Balance 1050 -83 650 Result Diagrams: 06/17/17 13:09 06/17/17 13:09 Phys Exam - Physical Examination pt's right temporal area and around eye ecchymosis Neck: no nodes Respiratory: no wheezing Cardiovascular: RRR, no significant murmur Gastrointestinal: soft, non-tender Musculoskeletal: no edema Neurological: non-focal Dx/Plan (1) Brain metastases Code(s): C79.31 - SECONDARY MALIGNANT NEOPLASM OF BRAIN Status: Acute Plan: s/p craniotomy, pt on ppi, steroids and seizure ppx. lymphoma (2) Adult hypothyroidism Code(s): E03.9 - HYPOTHYROIDISM, UNSPECIFIED Status: Acute Plan: continue home meds (3) Breast cancer Status: Acute - Plan * .
[2017-06-19] MEDS: Anastrozole 1 MG TAB PO SCH (20:25)
[2017-06-20] MEDS: Dexamethasone 4 mg/ml Vial SLOW IVP SCH ×2 (05:40→12:09)
--- NOTE | 2017-06-20 08:09 | PRG ---
DATE OF SERVICE: 06/20/2017 HISTORY: Ms. Alfaro this morning is resting well in bed, although she is somewhat anxious. Her s on and at the bedside stated that overnight she started to develop significant anxiety and wa s ordered Xanax, which in their opinion and the patient's opinion seem to make things by a little mor e out of control. She is a little bit tearful and somewhat blunted as we are speaking, I discussed w ith her that sometimes these medications can have the opposite effect of what we intend, and that onel t is unfortunate, but we will work to improve that going forward. She is very weary of taking any me dications at present fearing that they all harm her, but I expressed that at least the steroids and t he IV fluids are important at the moment, I encouraged her to eat, so they will order food at bedside , I think it important that we tried to get her up and ambulate her today to assess her ability to fu nction on her feet. If stable, I think we can discharge her home as early as later today. Incision is still well approximated, no drainage that I can tell. She started to have more developed areas of edema around the right orbit and forehead particularly at the temporal end of her incision. Mike Adorno PA-C dictating for Dr. Weaver.
[2017-06-20] MEDS: Pantoprazole 40 MG VIAL IVP SCH (09:03)
[2017-06-20] MEDS: Thyroid 60 MG TAB PO SCH (09:03)
--- NOTE | 2017-06-20 11:29 | PRG ---
DATE OF SERVICE: 06/20/2017 Ms. Alfaro is now 2 days status post right frontal craniotomy for resection of metastasis. She was transitioned from the unit to the floor yesterday. She is slowly starting to mobilize. Neurologically, she is doing just fine. She has been dealing with some anxiety over the last 24-48 hours. Our plan is to continue mobilizing her with physical therapy. Once we are convinced she is not a significant fall risk, we can work towards discharging her home. I am hopeful this will happen either later today or tomorrow. KOBI
[2017-06-20] MEDS ORDERED: Artificial Tear Sol 15 ML BOT EA EYE PRN (12:07)
--- NOTE | 2017-06-20 13:34 | PDOC.PN ---
- Subjective Encounter Start Date: 06/20/17 Encounter Start Time: 11:00 Subjective: pt up in bed stated she walked earlier. -: still feels a little anxious but does not want xanax - Objective Vital Signs & Weight: Vital Signs (12 hours) Temp Pulse Resp BP Pulse Ox 06/20/17 12:00 98.9 F 74 14 157/80 H 99 06/20/17 08:00 98.3 F 70 15 100 06/20/17 07:52 98.3 F 70 15 134/82 100 06/20/17 04:00 98.2 F 69 16 131/77 100 Weight Weight 166 lb Most Recent Monitor Data Heart Rate from ECG 75 NIBP 111/51 NIBP BP-Mean 75 Respiration from ECG 14 SpO2 96 I&O: 06/19/17 06/20/17 06/21/17 06:59 06:59 06:59 Intake Total 1322 1350 Output Total 1405 Balance -83 1350 Result Diagrams: 06/17/17 13:09 06/17/17 13:09 Phys Exam - Physical Examination HEENT: PERRLA (pt has ecchymosis to her right eye) Neck: no nodes Respiratory: no wheezing, no rales Cardiovascular: RRR, no significant murmur Gastrointestinal: soft, non-tender Musculoskeletal: no edema, pulses present Dx/Plan (1) Brain metastases Code(s): C79.31 - SECONDARY MALIGNANT NEOPLASM OF BRAIN Status: Acute Plan: s/p resection, pathology pending. pt to follow up with neruosurg and onc. continue steroids and seizure ppx. (2) Adult hypothyroidism Code(s): E03.9 - HYPOTHYROIDISM, UNSPECIFIED Status: Acute Plan: continue home meds (3) Breast cancer Status: Acute - Plan * .
[2017-06-20] MEDS: Dexamethasone 4 MG TAB PO SCH (17:13)
[2017-06-20] MEDS ORDERED: Acetaminophen 325 MG TAB PO PRN (19:49)
[2017-06-20] MEDS ORDERED: diphenhydrAMINE 25 MG CAP PO PRN (19:50)
[2017-06-20] MEDS: levETIRAcetam 500 MG TAB PO SCH (19:54)
[2017-06-20] MEDS: Anastrozole 1 MG TAB PO SCH (19:54)
[2017-06-21] MEDS: Dexamethasone 4 MG TAB PO SCH ×2 (00:11→06:37)
--- NOTE | 2017-06-21 06:39 | PRG ---
DATE OF SERVICE: 06/21/2017 SUBJECTIVE: I saw Ms. Alfaro this morning. She is postop day #3 from craniotomy for removal of a right frontal lesion. She also has a large lesion in the splenium of the corpus callosum. A subepe ndymal and occipital lobe lesion on the left side and 2 smaller lesions in the posterior frontal/cleo etal area on the right and 1 in deep white matter on the left side. Ms. Alfaro is not feeling too well this morning. Her mood is depressed from her lack of sleep, he r head pain, and the diagnosis of likely lymphoma. Awaiting final pathology. Ms. Alfaro reiterates her desire to be home and I told her we can make that happen today. If she is safe eating, dressing herself, toileting herself, and walking then she can be discharged. Her case has already been communicated extensively with the Oncology and Radiation Oncology group. Rafy dela cruz will make appointments for her to see them in clinic. She can be discharged and follow up as an outpatient. We should continue Decadron and Protonix.
[2017-06-21] MEDS: levETIRAcetam 500 MG TAB PO SCH (08:39)
[2017-06-21] MEDS: Pantoprazole 40 MG VIAL IVP SCH (08:39)
[2017-06-21] MEDS: Thyroid 60 MG TAB PO SCH (08:39)
[2017-06-21 08:45] VITALS: BP 124/83; TEMP 98.4
--- NOTE | 2017-06-21 22:15 | DIS ---
DATE OF ADMISSION: 06/17/2017 DATE OF DISCHARGE: 06/21/2017 DISCHARGE MEDICATIONS: As the following: Protonix 40 mg p.o. b.i.d., [place] 60 mg daily, Arimidex 1 p.o. at bedtime, Flexeril 10 mg t.i.d. p.r.n., Keppra 500 mg b.i.d., dexamethasone 4 mg p.o. q.6 ayala rs, and Tylenol p.r.n. as needed. Also, Fioricet 50-325 one p.o. q.4-6 hours p.r.n. for pain. DISCHARGE DIAGNOSES: 1. Brain mass, possible lymphoma versus breast cancer metastasis, most likely lymphoma. 2. History of breast cancer. 3. Hypothyroidism. 4. History of anxiety. DISCHARGE SUMMARY: The patient is a very pleasant 67-year-old female, who was initially diagnosed wi th breast cancer and underwent a lumpectomy with chemotherapy, who presented to the hospital initiall y with complaints of headaches and altered mental status. Patient initially had presented to an [facility], where she was given a slip for a CT head which after performing it, she was asked to come in to the ER for further evaluation. Patient had had on the CAT scan images multiple intracranial katy s. She then underwent an MRI of the brain, which indicated a definite 3 mass-like areas of enhanceme nt with surrounding vasogenic edema, with 2 additional areas where at the fowler-white junction. She w as seen by Neurosurgery, underwent a craniotomy for removal of the right frontal lesion. She also pe r the surgeon's note has a large lesion in the splenium of the corpus callosum. A subependymal and o ccipital lobe lesion in the left side and two small lesions in the posterior frontoparietal area on t he right and one deep white matter on the left side. The patient was asked to follow up with Oncolog y and surgery with possible diagnosis of most likely lymphoma. During the hospital stay, given the p atient's anxiety and severe depression, she was given a small dose of Xanax; however, patient stated that she started seeing things and did not want any antianxiety medication, did try to offer her some Celexa, which would help with anxiety and depression; however, the patient states that she has very low threshold for medication side effects and she did not want to take anything. The patient on disc harge was stable. PHYSICAL EXAMINATION: VITAL SIGNS: Her vital signs were as the following, 98.4, 74, respirations 14, 98% room air, 123/83. GENERAL: Awake, alert, oriented x3. HEENT: She does have daniel intact to her right side of her cranium. CARDIOVASCULAR: S1, S2 present. No murmurs, rubs, or gallops. RESPIRATORY: Lungs are clear to auscultation. No rhonchi, wheezes noted. ABDOMEN: Soft, nontender. Bowel sounds are present x2.
== END 2017-06-21 11:10 | disposition home or self-care (01) | DRG 820 ==
LOC: ERS 12:30 → 2SE 14:07 → CCU 15:00 → SURG A 06-19 12:29
PROVIDERS: ADMIT Internal Medicine; ATTEND Internal Medicine
PROC: 00B00ZX Excision of Brain, Open Approach, Diagnostic (ICD-10-PCS; principal; 2017-06-18)
DX: C83.31 Diffuse large B-cell lymphoma, lymph nodes of head, face, and neck (principal); G93.6 Cerebral edema; C85.81 Other specified types of non-Hodgkin lymphoma, lymph nodes of head, face, and neck; E03.9 Hypothyroidism, unspecified; Z85.3 Personal history of malignant neoplasm of breast; K21.9 Gastro-esophageal reflux disease without esophagitis; Z90.11 Acquired absence of right breast and nipple; F41.9 Anxiety disorder, unspecified; F32.9 Major depressive disorder, single episode, unspecified; K58.9 Irritable bowel syndrome, unspecified
CPT/HCPCS: 36415; 70450; 70553; 71045; 71260; 74177; 80053; 81001; 82378; 82550; 82553; 84484; 85025; 85610; 85730; 86300; 88184; 88307; 88331; 88334; 93005; 96374; A4216; C1713; C9113; G8978-GP-CJ; G8979-GP-CJ; G8980-GP-CJ; J1100; J1953; J2001; J2250; J2270; J2405; J2550; J2704; J3010; J3370; J3490; J7050; J8540

== ENCOUNTER 2017-06-27 18:45 | Inpatient (IN) | payer MEDICARE ==
[2017-06-27] MEDS ORDERED: Dexamethasone 10 MG/ML VIAL ONE (19:16)
[2017-06-27] MEDS ORDERED: Dexamethasone 4 mg/ml Vial ONE (20:45)
[2017-06-27] MEDS ORDERED: Docusate 100 MG CAP PO PRN (20:57)
[2017-06-27] MEDS ORDERED: Ondansetron HCl/PF 4 MG/2 ML Vial IVP PRN (20:57)
[2017-06-27] MEDS ORDERED: Acetaminophen 325 MG TAB PO PRN (20:57)
[2017-06-27] MEDS ORDERED: hydrALAZINE 20 MG/ML VIAL SLOW IVP PRN (20:57)
[2017-06-27] MEDS ORDERED: Sodium Chloride 0.9% 1,000 ML IV SCH (21:00)
[2017-06-27] MEDS ORDERED: HYDROcodone/Acetaminophen 5/325 mg Tablet PO PRN (21:39)
--- NOTE | 2017-06-27 22:17 | CT ---
NONCONTRAST HEAD CT: Date: 06/17/17 HISTORY: Status post biopsy. Complaints of postop complications. Patient finished steroids on Wednesday. Dizzin ess. Headache and low grade fever. TECHNIQUE: Noncontrast head CT is performed from skull base to skull vertex. FINDINGS: There is postsurgical change involving midline scalp daniel, right frontal craniotomy defect. There is a small focus of air underneath the craniotomy defect. A small amount of extra-axial hemorrhage is noted. There may be a small component of parenchymal hemorrhage in the right frontal lobe, measuring 2.1 x 0.9 cm. There is mass effect upon the frontal horn of the right lateral ventricle. There is an terior right to left subfalcine herniation, best demonstrated at the level of the septum pellucidum m easuring 0.5 cm. Basilar cisterns are patent. There is persistent hypoattenuation of the right fronta l lobe subcortical white matter due to vasogenic edema. There is stable hypoattenuation involving the left and right posterior centrum semiovale and mcdowell radiata. Additionally, there are mildly hyperd ense masses involving the posterior right and left corpus callosum. The overall distribution is uncha nged from the previous exam. A small amount of subdural blood is noted along the right anterior parafalcine region. Adequate aeration of the sinuses and mastoid air cells. IMPRESSION: 1. Postsurgical changes as defined above. There is evidence of a small focus of pneumocephalus. 2. There is evidence of extra-axial, as well as intraparenchymal hemorrhage, which is presumed to be iatrogenic. 3. Stable white matter hypodensity due to vasogenic edema. 4. Interval 4.5 mm of right to left subfalcine herniation predominantly involving the anterior aspec t. This subfalcine herniation predominantly involves the anterior septum pellucidum, at the level of the frontal horn to the lateral ventricle. POS: PPP
[2017-06-27] MEDS: Famotidine 20 MG TAB PO SCH (22:43)
[2017-06-27 22:47] VITALS: BMI 27.6
[2017-06-27] MEDS ORDERED: Morphine 5 MG/ML SYRINGE SLOW IVP PRN (23:00)
[2017-06-27] MEDS ORDERED: Dexamethasone 4 MG TAB PO SCH (23:59)
[2017-06-28] MEDS ORDERED: Dextrose 5 %-0.45 % NaCl 1,000 ML IV SCH ×2 (00:15→00:30)
[2017-06-28] MEDS ORDERED: Fioricet 325/50/40 mg Tablet PO PRN (00:27)
[2017-06-28] MEDS ORDERED: Acetaminophen/Codeine 30-300mg Tablet PO PRN (00:27)
--- NOTE | 2017-06-28 02:29 | HP ---
PRESENTING COMPLAINT: Headaches. HISTORY OF PRESENT ILLNESS: A 67-year-old female with a past medical history of hypothyroidism, hype rtension, metastatic brain cancer with recent craniotomy, who was placed on steroids and finished her dose on Wednesday. She reports headaches since then, dizziness, weakness as well as low-grade fever (T-max was 99.8 degree Fahrenheit). She has also had difficulty ambulating due to generalized malais e. She denies abdominal pain, vomiting, chest pain, shortness of breath, palpitations, PND, orthopne a, or lower extremity edema. She has no urinary symptoms. She had Neurosurgery for brain metastasis on 06/18/2017. She finished her prednisone taper on Wednesday and her symptoms started since then. At the emergency room, she was reviewed by Neurosurgery and they recommended no acute surgical interv ention, recommendations were to continue steroids and to consult, Dr. Lopez. PAST MEDICAL HISTORY: Breast cancer, hypertension, hypothyroidism. PAST SURGICAL HISTORY: Cholecystectomy, craniotomy. FAMILY HISTORY: Reviewed, noncontributory. SOCIAL HISTORY: She does not smoke cigarettes, drink alcohol, or use illicit drugs. ALLERGIES: None. REVIEW OF SYSTEMS: Constitutional: Fever, generalized weakness. Eyes: Negative. HEENT: Headache . Cardiovascular: Negative. Respiratory: Negative. GI: Negative. : Negative. Musculoskelet al: Negative. Skin: Negative. Neurologic: Dizziness. Endocrine: Negative. Hematologic/Lymphat ic: Negative. Immunology: Negative. PHYSICAL EXAMINATION: VITAL SIGNS: Stable. Temperature 98.8, pulse 76, respiratory rate 16, oxygen saturation 97% on room air, blood pressure 109/56. GENERAL: Not in acute distress, lying comfortably in bed. HEENT: Craniotomy scar across the forehead, right eye ecchymosis under the right eyelid. Not pale, anicteric. PERRLA, EOMI. RESPIRATION: Vesicular breath sounds bilaterally, normal wheezes or rales. CARDIOVASCULAR: Regular rate and rhythm. No murmurs, rubs, or gallops. No edema. ABDOMEN: Soft, tender, not distended. Bowel sounds positive. No organomegaly. GENITOURINARY: Deferred. NEUROLOGIC: Alert and well oriented. No focal deficits. SKIN: Warm, dry, well-perfused. MUSCULOSKELETAL: No skeletal abnormalities. LABORATORY DATA: None at the emergency room. Urinalysis none. IMAGING: Brain CT, postsurgical changes seen with small focus of pneumocephalus. There is also evid ence of extraaxial as well as intraparenchymal hemorrhage, which is presumed to be iatrogenic. Stabl e white matter hypodensity due to vasogenic edema, interval 4.5 mm of [id number] subfalcine hernia tion predominantly involving the anterior aspect. This subfalcine herniation predominantly involves the anterior septum, pellucidum at the level of the frontal horn to the lateral ventricle. ASSESSMENT AND PLAN: 1. Headache secondary to metastatic cancer. She is currently stable. Headaches have resolved. CT brain did not show any acute changes. She has also been reviewed by Neurology and no acute surgical intervention for now. We will monitor her in hospital, placed on IV Decadron and monitor vital signs closely. We will also consult Neurosurgery to follow while on admission. Continue seizure prophyla xis. 2. Hypertension. We will hold blood pressure medications for now and reintroduce gradually. 3. Hypothyroidism. Resume home medications. Obtain TSH.
[2017-06-28] MEDS ORDERED: Dexamethasone 4 mg/ml Vial SLOW IVP SCH (04:00)
[2017-06-28] MEDS ORDERED: Dexamethasone 12 MG in Sodium Chloride 0.9% 50 ML IVPB SCH (04:00)
[2017-06-28] MEDS: Dexamethasone 4 mg/ml Vial SLOW IVP SCH ×2 (04:23→10:19)
[2017-06-28 05:33] LABS: #Lymphocytes 0.8 thou/uL (1.20-3.40); #Monocytes 0.1 thou/uL (0.11-0.59); #Neutrophils 4.3 thou/uL (1.40-6.50); %Basophils 0.5 % (0.0-1.0); %Eosinophils 0.1 % (0.0-10.0); %Lymphocytes 15.5 % (21.0-51.0); %Neutrophils 81.9 % (42.0-75.0); Hemoglobin 13.9 g/dL (12.0-16.0); Mean Corpuscular Hemoglobin 31.3 pg (27.0-31.0); Mean Corpuscular Volume 92.1 fl (81.0-99.0); Mean Platelet Volume 6.6 fL (7.4-10.4); Platelet Count 297 thou/uL (130-400); Red Blood Cell (RBC) Count 4.45 mill/uL (4.20-5.40); White Blood Cell (WBC) Count 5.3 thou/uL (4.8-10.8)
[2017-06-28 05:34] LABS: Prothrombin Time 13.1 SEC (12.0-14.7)
[2017-06-28 05:42] LABS: Anion Gap 12 mmol/L (10-20); BUN (Urea Nitrogen) 11 mg/dL (9.8-20.1); Calc. Creatinine Clearance 97 mL/min (70-130); Calcium 9.4 mg/dL (7.8-10.44); Carbon Dioxide 27 mmol/L (23-31); Chloride 99 mmol/L (98-107); Estimated GFR-MDRD 87; Glucose 137 mg/dL (80-115); Potassium 4.5 mmol/L (3.5-5.1); Sodium 133 mmol/L (136-145)
--- NOTE | 2017-06-28 06:00 | CON ---
DATE OF CONSULTATION: 06/27/2017 HISTORY OF PRESENT ILLNESS: Ms. Alfaro is a 67-year-old female who presents to [facility] status post right frontal tumor resection on 06/18/2017. Postoperatively, she did well after leavi ng the hospital with a steroid taper. She finished the steroid taper on 06/25/2017 and since then allison s been having some acute mental status changes. The family has witnessed her being off balance and s eems to be making decisions that she would not normally make. She has a history of breast cancer not ed in 2017 and was being treated by Dr. Lopez. On presentation to the emergency department tonight , she has GCS of 15. She is neurologically intact with horizontal nystagmus. Her cranial nerves see m to be functioning well and I did not find any cerebellar deficits on exam. There is no lateralizin g on exam. She answers all my questions appropriately. Neurosurgery was consulted after CT scan of the brain showed [id number]-[id number] midline shift and increasing vasogenic edema around the tumor resectio n. ALLERGIES: XANAX causes severe hallucinations. CURRENT MEDICATIONS: 1. Prevacid 15 mg oral. 2. Anastrozole 1 mg oral once a day. 3. Prednisolone 15 mg/5 mg oral. 4. Decadron 0.5 mg oral. PAST MEDICAL HISTORY: Includes breast cancer in 2017, thyroid dysfunction. PAST SURGICAL HISTORY: Right lumpectomy in 2017, surgical history of cholecystectomy, surgery in 199 0, brain tumor removal in 06/18/[address] Kaur. PSYCHIATRIC HISTORY: No previous psychiatric history. SOCIAL HISTORY: Patient drinks rarely alcohol. She denies any drug use. She has no illicit drug us e. No smoking history. Lives at home with her family. REVIEW OF SYSTEMS: Patient reports low-grade fever of 99.8. She reports weakness. Reports dizzines s and headache. She reports being off balance and not responding to questions appropriately. All ot her review of systems is negative, unless stated in the above HPI. PHYSICAL EXAMINATION: VITAL SIGNS: Blood pressure 106/68, pulse 82, respirations 18, temperature 99.5, pain is 7, 98% on r oom air. GENERAL: The patient is alert and oriented x4. GCS of 15. She appears to be in no acute distress. HEENT: Normocephalic, atraumatic. Incision from right frontal craniotomy is clean, dry, and intact with daniel. There is no sign of purulent drainage, erythematous on the incision. NECK: Trachea is midline. She has moist mucous membranes. EYES: Pupils are equal and reactive to light. Extraocular muscles are intact. Sclerae are white, n onicteric. CARDIOVASCULAR: The patient has regular rate and rhythm, normal S1, S2 heart sounds. No distal cyan osis or clubbing noted in the upper or lower extremities. +2 pulses in the brachial and radial pulse s in the upper extremities bilaterally and posterior tibial pulses are +2 pulses. SKIN: Normal in turgor and color. No abnormalities seen. EXTREMITIES: The patient has generalized weakness in the upper and lower extremities. She is able t o move all extremities against resistance was 4/5 strength. She has no dermatomal or focal sensory o r muscle motor weakness. Subjective weakness in the leg, has become pronounced today and so much onel t she was unable to take 5 consecutive steps. NEUROLOGIC: Cranial nerves II through XII are grossly intact. Speech is fluent. She answers my que stions appropriately. She has no associated memory loss, no loss of consciousness, and no associated tumor or motor ability changes. Her speech is normal. Her face is symmetric. ASSESSMENT: The patient is status post right frontal craniotomy on 06/18/2017. She has a new onset worsening of vasogenic edema around the site of resection causing a [id number] midline shift with acute mental status changes. PLAN: From neurosurgical standpoint, there is no neurosurgical emergency at this time. We will have the medicine team admit the patient and put in orders to start Decadron 4 mg q.6 hours scheduled and Pepcid for GI prophylaxis. We will also have physical therapy work with her and assess her gait and consult Dr. Lopez for radiation therapy of the brain tomorrow. I have ordered some basic labs and keep her n.p.o. after midnight. She can walk with assistance and up to a chair as tolerated. Keep the head of bed at 30 degrees, neuro checks q.4 hours. We will have the medical team admit to stroke unit. If there are any further questions, please feel free to contact Neurosurgery.
--- NOTE | 2017-06-28 07:53 | PDOC.PN ---
- Subjective Encounter Start Date: 06/28/17 Encounter Start Time: 07:51 Subjective: feels better - Objective MAR Reviewed: Yes Vital Signs & Weight: Vital Signs (12 hours) Temp Pulse Resp BP Pulse Ox 06/28/17 03:07 98.5 F 69 16 111/58 L 95 06/27/17 23:22 98.8 F 76 16 109/56 L 97 06/27/17 22:05 98.6 F 78 18 98 06/27/17 22:03 98.6 F 78 18 122/59 L 98 Weight Weight 165 lb 12.8 oz I&O: 06/27/17 06/28/17 06/29/17 06:59 06:59 06:59 Intake Total 945 Output Total 900 Balance 45 Result Diagrams: 06/28/17 05:05 06/28/17 05:05 Phys Exam - Physical Examination Constitutional: NAD Neck: no JVD Respiratory: clear to auscultation bilateral Cardiovascular: RRR, no significant murmur Gastrointestinal: soft, positive bowel sounds Musculoskeletal: no edema Deviation from normal: suture line forehead , healing Dx/Plan (1) Postoperative cerebral edema Code(s): G93.6 - CEREBRAL EDEMA Status: Acute (2) Breast cancer metastasized to brain Code(s): C50.919 - MALIGNANT NEOPLASM OF UNSP SITE OF UNSPECIFIED FEMALE BREAST ; C79.31 - SECONDARY MALIGNANT NEOPLASM OF BRAIN Status: Chronic Qualifiers: Laterality: unspecified laterality Qualified Code(s): C50.919 - Malignant neoplasm of unspecified site of unspecified female breast; C79.31 - Secondary malignant neoplasm of brain; C79.31 - Secondary malignant neoplasm of brain; C79.31 - Secondary malignant neoplasm of brain; C79.31 - Secondary malignant neoplasm of brain (3) HTN (hypertension) Code(s): I10 - ESSENTIAL (PRIMARY) HYPERTENSION Status: Chronic Qualifiers: Hypertension type: essential hypertension Qualified Code(s): I10 - Essential (primary) hypertension (4) Hypothyroid Code(s): E03.9 - HYPOTHYROIDISM, UNSPECIFIED Status: Chronic Qualifiers: Hypothyroidism type: unspecified Qualified Code(s): E03.9 - Hypothyroidism , unspecified - Plan cont iv decadron, appreciate NS input -: discuss with oncology * .
--- NOTE | 2017-06-28 08:08 | PRG ---
DATE OF SERVICE: 06/28/2017 I personally interviewed and examined the patient and agree with documentation of Eddie Gillespie PA-C, d ated 06/27/2017. Briefly, Yuni Alfaro is a patient from our neurosurgery service. On 06/18/2017 she underwent a craniotomy for resection of a right frontal lesion. She also had 2 lesions posteriorly. The pathol ogy was B cell lymphoma. Ms. Alfaro was on a steroid taper and finished that and started feeling ill and had mental status deterioration and was brought back to the hospital. After both the steroids and a night of IV fluids, Ms. Alfaro is feeling better this morning. She is not back to feeling well, but she is anxious to start treatment and I think that should be started . Her vital signs overnight are stable. Her blood pressures are reasonable. There is no fever. On examination, Ms. Alfaro has daniel still in place. There is some eschar along the incision, b ut there is no evidence of infection. The ecchymosis around the right eye is improving since surgery . I do not see any new lateralizing motor or sensory deficits. CT imaging suggests vasogenic edema around the 2 lesions posteriorly and the surgical site anteriorly . There is a small amount of blood at the surgical site, as I would expect to see, but not enough bl ood to require any evacuation. LEAF TINNER lymphoma typically grows quickly, but also responds quickly to radiation. I think we can start t reatment even though the daniel are still in and the skin is not 100% closed now. In fact, I think we ought to start treatment sooner rather than later and will simply leave the daniel in for 3 weeks instead of 2. I recommended consulting Medical Oncology and Radiation Oncology to start her treatment paradigms as soon as possible. I do not see any indication for surgical intervention.
[2017-06-28] MEDS: Famotidine 20 MG TAB PO SCH (08:09)
[2017-06-28] MEDS ORDERED: levETIRAcetam 500 MG TAB PO SCH (09:00)
[2017-06-28] MEDS ORDERED: Hydrochlorothiazide 25 MG TAB PO SCH (09:00)
[2017-06-28] MEDS ORDERED: Prevnar 13-Val Conj/PF 0.5 ML SYRINGE IM ONE (09:00)
[2017-06-28] MEDS ORDERED: FLU VACC TS2017-18 (>65YR) 0.5 ML SYRINGE IM ONE (09:00)
[2017-06-28] MEDS ORDERED: Thyroid 60 MG TAB PO SCH (09:00)
--- NOTE | 2017-06-28 12:17 | CON ---
DATE OF CONSULTATION: 06/28/2017 REASON FOR CONSULTATION: B-cell lymphoma. HISTORY OF PRESENT ILLNESS: Ms. Alfaro is a 67-year-old female with a past medical history of sta ge I lobular breast cancer who presented approximately 2 weeks ago with complaints of altered mental status. Brain MRI showed three masses in the brain. Dr. Kaur performed a biopsy, which returne d a diffuse large B cell lymphoma. Dr. Lopez saw the patient and recommended [facility] opinion . She was placed on steroids and did well until her steroids were weaned off this past weekend when she began to have a headache and dizziness and unsteady gait. She presented back to the emergency ro om for evaluation. She did receive IV fluids and a dose of IV steroids with improvement in her menta l status. Patient is still recovering from her craniotomy. She has daniel in her anterior scalp. She denies any focal weakness. She is sitting on the bed eating breakfast at this time. PAST MEDICAL HISTORY: 1. Stage I breast cancer. 2. Hypertension. 3. Hypothyroidism. 4. 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 PAST SURGICAL HISTORY: 1. Cholecystectomy. 2. Craniotomy. ALLERGIES: No known drug allergies. HOME MEDICATIONS: 1. Tylenol #3 p.r.n. 2. Arimidex 1 mg daily. 3. Hydrochlorothiazide 25 mg daily. 4. Keppra 500 mg b.i.d. 5. Protonix 40 mg daily. 6. Thyroid 60 mg daily. FAMILY HISTORY: Noncontributory. SOCIAL HISTORY: , has one child with her spouse. No alcohol, tobacco or illicit drug use. REVIEW OF SYSTEMS: Ten point review of systems is negative except for headache. PHYSICAL EXAMINATION: VITAL SIGNS: Temperature is 98.6, pulse is 80, respiratory rate 16, BP is 115/57. She is 95% on rachelle m air. GENERAL: Well-developed, well-nourished female in no acute distress. HEENT: Normocephalic, atraumatic. Pupils equal and reactive to light. NECK: Supple. CARDIOVASCULAR SYSTEM: Regular rate and rhythm. LUNGS: Clear. ABDOMEN: Soft, nontender, bowel sounds are positive. EXTREMITIES: No clubbing, cyanosis or edema. SKIN: She has a healing surgical incision on her forehead. NEUROLOGIC: Nonfocal. PSYCHIATRIC: The patient is alert and oriented. PERTINENT LABORATORY DATA AND X-RAYS: Current WBCs are 5.3, hemoglobin 13.9, hematocrit 41.0, platel et count 297,000. She got 82% neutrophils, 15% lymphocytes. Sodium is 133, potassium 4.5, chloride 99, CO2 is 27, BUN is 11, creatinine 0.68, and calcium is 9.4. Brain CT was similar to less than 10 days ago except postsurgical changes were noted. IMPRESSION: 1. Diffuse large B cell lymphoma with central nervous system involvement. 2. Headache secondary to lymphoma. DISCUSSION: The patient has resumed steroids with improvement in her neurological symptoms. She has been referred to [facility]. Yet has not made an appointment. We will see if we can help facili miller her contact with Neuro-Oncology. She should stay on steroids until she is able to see them. Thank you for the consult facilitate this appointment. They have yet to contact Liss[facility] Ramires.
[2017-06-28 12:19] VITALS: BP 107/56; TEMP 97.8
--- NOTE | 2017-06-28 12:45 | DIS ---
TRANSFER OF CARE NOTE PRIMARY CARE PROVIDER: Dr. Lopez DATE OF ADMISSION: 06/27/2017 DATE OF DISCHARGE: 06/28/2017 DISCHARGE DISPOSITION: Discharged home. FOLLOWUP: Follow up per Oncology. FINAL DIAGNOSES: 1. Cerebral edema. 2. Headache. 3. Metastatic cancer to the brain post recent craniotomy. 4. Breast cancer. 5. Hypertension. 6. Hypothyroidism. 7. Seizures. DISCHARGE MEDICATIONS: Decadron 4 mg p.o. b.i.d., Keppra 500 mg p.o. b.i.d., Protonix 40 mg b.i.d. Thyroid 60 mg a day, nitrofurantoin 1 tablet q.12h., Tylenol with codeine 1 tab every 6 hours as need ed for pain, hydrochlorothiazide 25 mg a day, Arimidex 1 mg 1 tablet daily. ALLERGIES: XANAX. CODE STATUS: Full code. PENDING AT TIME OF DISCHARGE: Nothing. HOSPITAL COURSE: The patient with recent craniotomy for malignant metastases to the brain. She was put on oral steroids, postop was tapered. She reports with headaches, dizziness, weakness. Brain CT showed post-surgical changes with a small focus of pneumocephalus, she had vasogenic edema. She was seen in consultation by Eddie Gillespie for Dr. Kaur. There was no neurosurgical emergency. She wa s started on IV Decadron, seen by Kimberlee Garcia for Dr. Lopez recommended p.o. Decadron for probable urgent appointment with [facility]. This is currently being worked on. It will be an inpatient to inpatient transfer. PROCEDURES: None. PERTINENT LABORATORY DATA: CBC was normal except for a mild neutrophilia. Basic metabolic profile w as normal except for a blood sugar 137, sodium 133. She is being discharged. Family and Oncology wilson [facility] working on an appointment semi[facility]urg[facility] at [facility]. FOLLOWUP: She will be followed up either at Oncology here with Dr. Lopez or at [facility].
[2017-06-28] MEDS ORDERED: Naproxen 500 MG TAB PO SCH (21:00)
[2017-06-28] MEDS ORDERED: DIPHENHYDRAMINE PO SCH (21:00)
[2017-06-28] MEDS ORDERED: NAPROXEN SOD PO SCH (21:00)
[2017-06-28] MEDS ORDERED: diphenhydrAMINE 25 MG CAP PO SCH (21:00)
[2017-06-28] MEDS ORDERED: Anastrozole 1 MG TAB PO SCH (21:00)
== END 2017-06-28 14:03 | disposition home or self-care (01) | DRG 70 ==
LOC: ERS 18:45 → 2SE 21:00
PROVIDERS: ADMIT Internal Medicine; ATTEND Internal Medicine
DX: G93.89 Other specified disorders of brain (principal); G93.6 Cerebral edema; C71.9 Malignant neoplasm of brain, unspecified; C85.11 Unspecified B-cell lymphoma, lymph nodes of head, face, and neck; R51 Headache; E03.9 Hypothyroidism, unspecified; I10 Essential (primary) hypertension; Z85.3 Personal history of malignant neoplasm of breast; G40.909 Epilepsy, unspecified, not intractable, without status epilepticus; Z91.09 Other allergy status, other than to drugs and biological substances
CPT/HCPCS: 36415; 70450; 80048; 84443; 85025; 85610; 85730; 90471; 90670; 90682; 96374; G0008; G0009; G8978-GP-CI; G8979-GP-CI; G8980-GP-CI; J1100; Q2036

== ENCOUNTER 2017-10-03 07:50 | Emergency (ER) | payer MEDICARE ==
[2017-10-03] MEDS ORDERED: predniSONE 20 MG TAB ONE (08:56)
== END 2017-10-03 09:03 | disposition home or self-care (01) ==
LOC: SCSER 07:50
DX: L98.9 Disorder of the skin and subcutaneous tissue, unspecified (principal); K21.9 Gastro-esophageal reflux disease without esophagitis; F32.9 Major depressive disorder, single episode, unspecified; Z79.899 Other long term (current) drug therapy
CPT/HCPCS: 99282; J7506

== ENCOUNTER 2018-03-17 13:40 | Outpatient (CLI) | payer MEDICARE ==
--- NOTE | 2018-03-17 15:46 | BD ---
DEXA SCAN: INDICATIONS: Osteopenia. FINDINGS: LUMBAR SPINE BMD (g/cm2) T-SCORE Z-SCORE L1 0.817 -1.6 0.1 L2 0.914 -1.0 0.8 L3 0.908 -1.6 0.4 L4 0.848 -1.9 0.1 L1-L4 0.871 -1.6 0.3 LEFT FEMORAL NECK 0.680 -1.5 0.1 LEFT TOTAL HIP 0.973 -0.3 1.6 IMPRESSION: Based on the WHO criteria, the patient's bone mineral density is considered osteopenic. The patient is at moderate risk for fracture. The bone mineral density of the lumbar spine has declined 10.5% fr om the baseline, dated 06/04/2014, which is noted to be statistically significant. The FRAX-WHO Fracture Risk Assessment Tool estimates the 10-year fracture for this patient for a ashtyn r osteoporotic fracture as 17% and for a hip fracture as 1.5%. POS: ERIC
== END 2018-03-17 13:41 | disposition home or self-care (01) ==
LOC: BICMAMMO 13:40
PROVIDERS: ATTEND Internal Medicine Hematology & Oncology
DX: Z08 Encounter for follow-up examination after completed treatment for malignant neoplasm (principal); M85.89 Other specified disorders of bone density and structure, multiple sites; R92.1 Mammographic calcification found on diagnostic imaging of breast; R92.2 Inconclusive mammogram; Z85.3 Personal history of malignant neoplasm of breast; Z85.72 Personal history of non-Hodgkin lymphomas; Z98.890 Other specified postprocedural states
CPT/HCPCS: 77063; 77067; 77080

== ENCOUNTER 2018-05-12 06:22 | Day surgery (SDC) | payer MEDICARE ==
[2018-05-11 11:11] VITALS: BMI 25.0
[~2018-05-12 06:22] MED LIST: Cyclopentolate 1% Opth Drop 2 ML BOT FS SCH; Fluorouracil 100 MG, Enoxaparin Sodium 25 MG, EPINEPHrine 0.3 MG in Ophthalmic Irrigati... FS SCH; Phenylephrine 2.5% Ophth Soln 5 ML BOT FS SCH
[2018-05-12] MEDS ORDERED: Cyclopentolate 1% Opth Drop 2 ML BOT ONE (06:49)
[2018-05-12] MEDS ORDERED: Phenylephrine 2.5% Ophth Soln 5 ML BOT ONE (06:49)
[2018-05-12] MEDS ORDERED: PROPOFOL 20 ML ONE (08:08)
[2018-05-12] MEDS ORDERED: Fentanyl 100 MCG/2 ML VIAL ONE (08:08)
[2018-05-12] MEDS ORDERED: PROPOFOL 200 MG/20 ML VIAL ONE (14:47)
[2018-05-12] MEDS ORDERED: Bupivacaine 0.75% 10 ML AMP ONE (14:47)
[2018-05-12] MEDS ORDERED: Indocyanine Green 25 MG/10 ML VIAL ONE (14:47)
[2018-05-12] MEDS ORDERED: Lidocaine 1% PF 5 ML VIAL ONE ×2 (14:47)
[2018-05-12] MEDS ORDERED: CEFAZOLIN 1 GM VIAL ONE (14:47)
[2018-05-12] MEDS ORDERED: Triamcinolone 40 MG/ML VIAL ONE (14:47)
[2018-05-12] MEDS ORDERED: Maxitrol 0.1% Opth Oint 3.5 GM TUBE ONE (14:47)
[2018-05-12] MEDS ORDERED: Lidocaine 4% PF 5 ML AMP ONE (14:47)
--- NOTE | 2018-05-12 14:58 | OP ---
DATE OF PROCEDURE: 05/12/2018 PREOPERATIVE DIAGNOSIS: Macular hole, left eye. POSTOPERATIVE DIAGNOSIS: Macular hole, left eye. PROCEDURE PERFORMED: Pars plana vitrectomy and internal limiting membrane peel left eye. ANESTHESIA: Local with monitored anesthesia care. DESCRIPTION OF PROCEDURE: The patient was identified in the preoperative holding area. Appropriate informed consent for the planned surgical procedure of the left eye had been obtained. The patient was transported to the operative suite, where appropriate cardiopulmonary monitoring was established. Local anesthesia was obtained using retrobulbar block. The patient was prepped and draped in usual sterile manner for ophthalmic surgery in the left eye using 50:50 mixture of 4% lidocaine and 0.75% bupivacaine. The patient was prepped and draped in usual sterile manner for ophthalmic surgery, left eye. Lid speculum was placed on the left eye. A 25-gauge trocar was placed through the conjunctiva and sclera superotemporally, inferotemporally, and supranasally. Infusion line was placed inferotemporally. Light pipe and vitreous cutter were inserted into the eye. Core vitrectomy was performed. Posterior hyaloid face was elevated using vacuum suction peeled at the retina periphery. Indocyanine green dye was infused on the posterior pole x1, identifying the internal limiting membrane. This was elevated superiorly using a membrane scraper and peeled across the macula using end-gripping forceps. Indirect ophthalmoscopy was used to exam the retina 360 degrees. No holes, breaks, or tears were identified. Prophylactic laser was placed behind the sclerotomy sites. Complete air-fluid exchange was performed and 10 minutes being allowed for fluid to drain posteriorly. A 28% sulfur hexafluoride gas was infused into the eye. Trocars were removed. Superior nasal sclerotomy suture was closed. Retrobulbar Kenalog and subconjunctival Ancef were placed. Antibiotic ointment was placed and eye was patched and shielded. The patient was taken to the postoperative recovery unit in good condition, having suffered no immediate perioperative complications. The patient was instructed to keep the lifting or bending. Followup in the morning with Dr. Taylor. Job ID: [id number]
== END 2018-05-12 10:06 | disposition home or self-care (01) ==
LOC: SDC 06:22
PROVIDERS: ATTEND Ophthalmology Retina Specialist
PROC: 08T53ZZ Resection of Left Vitreous, Percutaneous Approach (ICD-10-PCS; principal; 2018-05-12)
PROC: 08NF3ZZ Release Left Retina, Percutaneous Approach (ICD-10-PCS; 2018-05-12)
DX: H35.342 Macular cyst, hole, or pseudohole, left eye (principal); Z79.811 Long term (current) use of aromatase inhibitors; Z79.899 Other long term (current) drug therapy; Z88.8 Allergy status to other drugs, medicaments and biological substances
CPT/HCPCS: 67025; J0171; J0690; J1650; J2001; J2704; J3010; J3301; J3490; J9190

== ENCOUNTER 2018-11-10 06:15 | Day surgery (SDC) | payer MEDICARE ==
[2018-11-09 11:44] VITALS: BMI 26.6
[~2018-11-10 06:15] MED LIST changes: -Cyclopentolate 1% Opth Drop 2 ML BOT FS SCH; +EPINEPHrine 0.3 MG in Ophthalmic Irrigation Solution 500 ML IVP SCH; -Fluorouracil 100 MG, Enoxaparin Sodium 25 MG, EPINEPHrine 0.3 MG in Ophthalmic Irrigati... FS SCH; -Phenylephrine 2.5% Ophth Soln 5 ML BOT FS SCH
[2018-11-10] MEDS ORDERED: Cyclopentolate 1% Opth Drop 2 ML BOT ONE (06:34)
[2018-11-10] MEDS ORDERED: Phenylephrine 2.5% Ophth Soln 5 ML BOT ONE (06:34)
[2018-11-10] MEDS ORDERED: Midazolam HCl 2 mg/2 ml Vial ONE (06:35)
[2018-11-10] MEDS ORDERED: Fentanyl 100 MCG/2 ML VIAL ONE (06:35)
[2018-11-10] MEDS ORDERED: PROPOFOL 20 ML ONE (06:46)
[2018-11-10] MEDS ORDERED: Bupivacaine 10 ML VIAL ONE (13:36)
[2018-11-10] MEDS ORDERED: Maxitrol 0.1% Opth Oint 3.5 GM TUBE ONE (13:36)
[2018-11-10] MEDS ORDERED: Lidocaine 4% PF 5 ML AMP ONE (13:36)
[2018-11-10] MEDS ORDERED: PROPOFOL 200 MG/20 ML VIAL ONE (13:36)
--- NOTE | 2018-11-11 09:38 | OP ---
DATE OF PROCEDURE: 11/10/2018 PREOPERATIVE DIAGNOSIS: Macular hole, right eye. POSTOPERATIVE DIAGNOSIS: Macular hole, right eye. PROCEDURE PERFORMED: Pars plana vitrectomy, membrane peel, right eye. ANESTHESIA: Local with monitored anesthesia care. PROCEDURE IN DETAIL: The patient was identified in the preoperative holding area. Appropriate informed consent for the planned surgical procedure of the right eye had been obtained. The patient was transported to the operative suite, where appropriate cardiopulmonary monitoring was established. Local anesthesia obtained using retrobulbar modified Van Lint lid block using 50:50 mixture of 4% lidocaine and 0.75% bupivacaine. The patient was prepped and draped in usual sterile manner for ophthalmic surgery, right eye. Lid speculum was placed in the right eye. A 25-gauge trocar was placed in conjunctiva and sclera superotemporally, inferotemporally, and supranasally. Infusion line was placed inferotemporally. Light pipe vitreous cutter was inserted into the eye. Core vitrectomy was performed. Posterior hyaloid face was elevated, peeled into the macular periphery. No other macular traction was identified. Complete air-fluid exchange was performed at 10 minutes being allowed for fluid to drain posteriorly. A 28% sulfur hexafluoride gas was infused into the eye. Trocars were removed. The eye was noted to retain pressure well. Antibiotic ointment was placed. The eye was patched and shielded. The patient was taken to postoperative recovery unit in good condition, having suffered no immediate perioperative complications. The patient was instructed to keep patch and shield on, avoid lifting or bending. Followup appointment with Dr. Taylor. Job ID: [id number]
== END 2018-11-10 09:04 | disposition home or self-care (01) ==
LOC: SDC 06:15
PROVIDERS: ATTEND Ophthalmology Retina Specialist
PROC: 08T43ZZ Resection of Right Vitreous, Percutaneous Approach (ICD-10-PCS; principal; 2018-11-10)
PROC: 08NE3ZZ Release Right Retina, Percutaneous Approach (ICD-10-PCS; 2018-11-10)
DX: H35.341 Macular cyst, hole, or pseudohole, right eye (principal)
CPT/HCPCS: 67025; J0171; J2001; J2250; J2704; J3010; J3490

== ENCOUNTER 2018-11-24 09:04 | Day surgery (SDC) | payer MEDICARE ==
[2018-11-23 11:15] VITALS: BMI 26.6
[~2018-11-24 09:04] MED LIST changes: +EPINEPHrine 0.3 MG in Ophthalmic Irrigation Solution 500 ML FS SCH; -EPINEPHrine 0.3 MG in Ophthalmic Irrigation Solution 500 ML IVP SCH
[2018-11-24] MEDS ORDERED: Cyclopentolate 1% Opth Drop 2 ML BOT ONE (09:43)
[2018-11-24] MEDS ORDERED: Phenylephrine 2.5% Ophth Soln 5 ML BOT ONE (09:43)
[2018-11-24] MEDS ORDERED: Fentanyl 100 MCG/2 ML VIAL ONE (12:06)
--- NOTE | 2018-11-24 21:16 | OP ---
DATE OF PROCEDURE: 11/24/2018 PREOPERATIVE DIAGNOSIS: Macular hole, right eye. POSTOPERATIVE DIAGNOSIS: Macular hole, right eye. PROCEDURE: Pars plana vitrectomy, internal limiting membrane peel, right eye. ANESTHESIA: General endotracheal anesthesia. PROCEDURE IN DETAIL: The patient was identified in the preoperative holding area. Appropriate informed consent for the planned surgical procedure on the right eye had been obtained. The patient was transported to the operative suite, appropriate cardiopulmonary monitoring was established. General endotracheal anesthesia was initiated. Local anesthesia was obtained using retrobulbar block. The patient was prepped and draped in usual sterile manner for ophthalmic surgery, right eye. Lid speculum was placed in the right eye. A 25-gauge trocar was placed in the conjunctivae and sclerae superotemporally, inferotemporally, and supranasally. Infusion line was placed inferotemporally. Light pipe vitreous cutter was inserted to the eye. Core vitrectomy was performed. Indocyanine green dye was infused on the posterior pole x1 identifying the internal limiting membrane. This was elevated using a membrane scraper and peeled across the macula using end-gripping forceps. Complete air-fluid exchange was performed and 10 minutes being allowed for fluid to drain posteriorly. Prophylactic laser was placed behind the sclerotomy sites. 28% sulfur hexafluoride gas was infused into the eye. Trocars were removed. The eye was noted to retain pressure well. Retrobulbar Kenalog and subconjunctival Ancef were placed. Antibiotic ointment was placed. Eye was patched and shielded. The patient was taken to postoperative recovery unit in good condition, having suffered no immediate perioperative complications. The patient was instructed to keep patch shield on, avoid lifting or bending, avoid flat and back positioning. Followup appointment with Dr. Taylor. Job ID: [id number]
== END 2018-11-24 15:30 | disposition home or self-care (01) ==
LOC: SDC 09:04
PROVIDERS: ATTEND Ophthalmology Retina Specialist
PROC: 08T43ZZ Resection of Right Vitreous, Percutaneous Approach (ICD-10-PCS; principal; 2018-11-24)
PROC: 08NE3ZZ Release Right Retina, Percutaneous Approach (ICD-10-PCS; 2018-11-24)
DX: H35.341 Macular cyst, hole, or pseudohole, right eye (principal); Z88.8 Allergy status to other drugs, medicaments and biological substances
CPT/HCPCS: J0131; J0171; J3010

== ENCOUNTER 2019-03-23 14:18 | Outpatient (CLI) | payer MEDICARE ==
--- NOTE | 2019-03-23 15:15 | MMO ---
Bilateral MAMMO Bilat Diag DDI+DEZ. CLINICAL HISTORY: Patient is 68 years old and is seen for diagnostic exam. The patient has no family history of breast cancer. The patient has a history of brain cancer in June,; lumpectomy procedure revealed invasive lobular right breast carcinoma in April,; Ultrasound guided core biopsy procedure revealed invasive lobular right breast carcinoma in March, and malignant (generic) in the right breast in March,. The patient has a history of right Ultrasound Guided Core Biopsy in March, and right Lumpectomy in 2015 - malignant. VIEWS: The views performed were: bilateral craniocaudal with tomosynthesis; bilateral mediolateral oblique with tomosynthesis; and bilateral mediolateral with tomosynthesis. FILMS COMPARED: The present examination has been compared to prior imaging studies performed at [facility] on 03/13/2016, 03/17/2016, 03/15/2017 and 03/17/2018. This study has been interpreted with the assistance of computer-aided detection. MAMMOGRAM FINDINGS: There are scattered fibroglandular densities. Finding 1: There are stable post operative changes seen in the right breast. Finding 2: There are stable benign appearing calcifications seen in both breasts. There are no suspicious masses, suspicious calcifications, or new areas of architectural distortion. IMPRESSION: THERE IS NO MAMMOGRAPHIC EVIDENCE OF MALIGNANCY. A ROUTINE FOLLOW-UP MAMMOGRAM IN 1 YEAR IS RECOMMENDED. THE RESULTS OF THIS EXAM WERE SENT TO THE PATIENT. ACR BI-RADS Category 2 - Benign finding MAMMOGRAPHY NOTE: 1. A negative mammogram report should not delay a biopsy if a dominant of clinically suspicious mass is present. 2. Approximately 10% to 15% of breast cancers are not detected by mammography. 3. Adenosis and dense breasts may obscure an underlying neoplasm. Reported by: BRIAN GUILLEN MD Electonically Signed: [id number]
--- NOTE | 2019-03-23 15:32 | BD ---
BONE DENSITOMETRY USING DEXA: HISTORY: Postmenopausal screening for osteoporosis. FINDINGS: LUMBAR SPINE BMD (g/cm2) T-SCORE Z-SCORE L1 0.865 -1.1 0.6 L2 0.892 -1.2 0.7 L3 0.884 -1.8 0.2 L4 0.829 -2.1 0.0 TOTAL 0.866 -1.6 0.3 NECK 0.681 -1.5 0.2 TOTAL 0.885 -0.5 0.9 There has been an interval reduction of 0.6% in the BMD of the lumbar spine and a reduction of 9.1% i n the BMD of the proximal femur since 03/17/2018. The ten year fracture risk for a major osteoporotic fracture is 16% and for a hip fracture is 1.9%. IMPRESSION: Osteopenia. POS: TPC
== END 2019-03-23 14:19 | disposition home or self-care (01) ==
LOC: BICMAMMO 14:18
PROVIDERS: ATTEND Internal Medicine Hematology & Oncology
DX: M85.80 Other specified disorders of bone density and structure, unspecified site (principal); C50.919 Malignant neoplasm of unspecified site of unspecified female breast; Z79.811 Long term (current) use of aromatase inhibitors
CPT/HCPCS: 77066; 77080; G0279

== ENCOUNTER 2020-03-27 08:08 | Outpatient (CLI) | payer MEDICARE ==
--- NOTE | 2020-03-27 08:55 | MMO ---
Bilateral MAMMO Bilat Diag [facility]. CLINICAL HISTORY: Patient is 69 years old and is seen for diagnostic exam. The patient has no family history of breast cancer. The patient has a history of brain cancer in June,; lumpectomy procedure revealed invasive lobular right breast carcinoma in April,; Ultrasound guided core biopsy procedure revealed invasive lobular right breast carcinoma in March, and malignant (generic) in the right breast in March,. The patient has a history of right Ultrasound Guided Core Biopsy in March, and right Lumpectomy in 2015 - malignant. VIEWS: The views performed were: bilateral craniocaudal with tomosynthesis; bilateral mediolateral oblique with tomosynthesis; and bilateral mediolateral with tomosynthesis. FILMS COMPARED: The present examination has been compared to prior imaging studies performed at [facility] on 03/17/2016, 03/15/2017, 03/17/2018 and 03/23/2019. This study has been interpreted with the assistance of computer-aided detection. MAMMOGRAM FINDINGS: There are scattered fibroglandular densities. Benign calcifications are noted bilaterally. There are stable right post-operative changes. There are no suspicious masses, suspicious calcifications, or new areas of architectural distortion. IMPRESSION: THERE IS NO MAMMOGRAPHIC EVIDENCE OF MALIGNANCY. A ROUTINE FOLLOW-UP MAMMOGRAM IN 1 YEAR IS RECOMMENDED. THE RESULTS OF THIS EXAM WERE SENT TO THE PATIENT. ACR BI-RADS Category 2 - Benign finding MAMMOGRAPHY NOTE: 1. A negative mammogram report should not delay a biopsy if a dominant of clinically suspicious mass is present. 2. Approximately 10% to 15% of breast cancers are not detected by mammography. 3. Adenosis and dense breasts may obscure an underlying neoplasm. Reported by: BETHANIE MCKENZIE MD Electonically Signed: [id number]
--- NOTE | 2020-03-29 07:20 | BD ---
EXAM: Bone densitometry using DEXA HISTORY: 69 yo female. Screening for postmenopausal osteoporosis FINDINGS: L1--bone mineral density 0.875 g/sq cm; T score -1.0 ; Z score 0.8 L2--bone mineral density 0.866 g/sq cm; T score -1.5 ; Z score 0.5 L3--bone mineral density 0.931 g/sq cm; T score -1.4 ; Z score 0.7 L4--bone mineral density 0.839 g/sq cm; T score -2.0 ; Z score 0.2 Total L1-L4--bone mineral density 0.877 g/sq cm; T score -1.5 ; Z score 0.5 Left femoral neck--bone mineral density0.689; T score -1.4 ; Z score 0.3 Total proximal left femur--bone mineral density 0.917; T score -0.2 ; Z score 1.2 There has been an interval improvement of 1.2% in the BMD of the lumbar spine and a improvement of 3.7% in the BMD of the proximal femur since the previous study of 03/23/2019. The 10 year fracture risk for a major osteoporotic fracture is 15% and for a hip fracture is 2.1%. IMPRESSION: Osteopenia
== END 2020-03-27 08:09 | disposition home or self-care (01) ==
LOC: BICMAMMO 08:08
PROVIDERS: ATTEND Internal Medicine Hematology & Oncology
DX: Z13.820 Encounter for screening for osteoporosis (principal); C50.411 Malignant neoplasm of upper-outer quadrant of right female breast; C83.39 Diffuse large B-cell lymphoma, extranodal and solid organ sites; M85.89 Other specified disorders of bone density and structure, multiple sites; Z78.0 Asymptomatic menopausal state
CPT/HCPCS: 77066; 77080; G0279

== ENCOUNTER 2021-04-02 09:02 | Outpatient (CLI) | payer MEDICARE | END 2021-04-02 09:03 | disposition home or self-care (01) | LOC: BICMAMMO 09:02 | PROVIDERS: ATTEND Internal Medicine Hematology & Oncology | DX: Z08 Encounter for follow-up examination after completed treatment for malignant neoplasm (principal); M85.89 Other specified disorders of bone density and structure, multiple sites; Z85.3 Personal history of malignant neoplasm of breast | CPT/HCPCS: 77066; 77080; G0279 ==

== ENCOUNTER 2021-10-10 08:10 | Outpatient (CLI) | payer MEDICARE | END 2021-10-10 08:11 | disposition home or self-care (01) | LOC: BICULT 08:10 | PROVIDERS: ATTEND Registered Nurse Community Health | DX: Z00.01 Encounter for general adult medical examination with abnormal findings (principal); R93.89 Abnormal findings on diagnostic imaging of other specified body structures; N89.8 Other specified noninflammatory disorders of vagina; K76.89 Other specified diseases of liver; Z90.49 Acquired absence of other specified parts of digestive tract | CPT/HCPCS: 76700; 76856 ==

== ENCOUNTER 2022-05-14 14:03 | Outpatient (CLI) | payer MEDICARE | END 2022-05-14 14:04 | disposition home or self-care (01) | LOC: BICMAMMO 14:03 | PROVIDERS: ATTEND Internal Medicine Hematology & Oncology | DX: Z12.31 Encounter for screening mammogram for malignant neoplasm of breast (principal); Z13.820 Encounter for screening for osteoporosis; M85.88 Other specified disorders of bone density and structure, other site; Z85.3 Personal history of malignant neoplasm of breast; Z85.841 Personal history of malignant neoplasm of brain; Z98.890 Other specified postprocedural states; T38.6X5A Adverse effect of antigonadotrophins, antiestrogens, antiandrogens, not elsewhere classified, initial encounter | CPT/HCPCS: 77063; 77067; 77080 ==

== ENCOUNTER 2023-05-20 14:31 | Outpatient (CLI) | payer MEDICARE | END 2023-05-20 14:32 | disposition home or self-care (01) | LOC: BICMAMMO 14:31 | PROVIDERS: ATTEND Nurse Practitioner Family | DX: Z12.31 Encounter for screening mammogram for malignant neoplasm of breast (principal); Z85.841 Personal history of malignant neoplasm of brain; Z98.890 Other specified postprocedural states | CPT/HCPCS: 77063; 77067 ==

== ENCOUNTER 2023-06-17 13:51 | Outpatient (CLI) | payer MEDICARE | END 2023-06-17 13:52 | disposition home or self-care (01) | LOC: BICMAMMO 13:51 | PROVIDERS: ATTEND Nurse Practitioner Family | DX: Z13.820 Encounter for screening for osteoporosis (principal); Z78.0 Asymptomatic menopausal state; M85.89 Other specified disorders of bone density and structure, multiple sites | CPT/HCPCS: 77080 ==

== ENCOUNTER 2025-01-18 13:42 | Outpatient (CLI) | payer MEDICARE | END 2025-01-18 13:43 | disposition home or self-care (01) | LOC: BICMAMMO 13:42 | PROVIDERS: ATTEND Nurse Practitioner Family | DX: Z12.31 Encounter for screening mammogram for malignant neoplasm of breast (principal); N64.89 Other specified disorders of breast; Z80.3 Family history of malignant neoplasm of breast; Z85.841 Personal history of malignant neoplasm of brain; Z86.000 Personal history of in-situ neoplasm of breast; Z98.890 Other specified postprocedural states | CPT/HCPCS: 77063; 77067 ==